=== PATIENT | male | born 2000 | race Caucasian/White ===

== ENCOUNTER 2018-12-01 19:53 | Emergency (ER) | payer BC ==
[~2018-12-01] VITALS: Ht 172.7 cm; Wt 59.1 kg
[2018-12-01 19:57] VITALS: BP 122/69
[2018-12-01 22:31] VITALS: PULSE 95; TEMP 100.9
== END 2018-12-01 22:31 | disposition home or self-care (01) ==
LOC: COL.ER 19:53
DX: B34.9 Viral infection, unspecified (principal)
CPT/HCPCS: J1885; J7030